=== PATIENT | male | born 1950 | race Caucasian/White ===

== ENCOUNTER 2023-06-03 14:32 | Emergency (ER) | payer OTHER, SELFPAY ==
[2023-06-03 14:42] VITALS: BP 110/73
[2023-06-03 15:05] LABS: % Eosinophils 3.1 % (0-6); % Immature Granulocytes 0.2 % (0-0.5); % Monocytes 9.8 % (1.7-9.3); % Neutrophils 58.9 % (42.2-75.2); Absolute Eosinophils 0.1 10^3/uL (0-0.7); Absolute Lymphocytes 1.1 10^3/uL (1.2-3.4); Absolute Monocytes 0.4 10^3/uL (0.1-0.6); Absolute Neutrophils 2.5 10^3/uL (1.4-6.5); Hematocrit 41.1 % (39.0-52.0); Hemoglobin 14.2 g/dL (13.0-18.0); Mean Corp Hgb Conc. 34.5 g/dL (33.0-37.0); Mean Corpuscular Volume 86.7 fL (80.0-94.0); Mean Platelet Volume 10.4 fL (7.4-10.4); Nucleated Red Blood Cells % 0 % (-); Platelet Count 189 10^3/uL (130-400); Red Blood Cell Count 4.74 10^6/uL (4.70-6.10); Red Cell Dist. Width 13.3 % (11.5-14.5); White Blood Cell Count 4.2 10^3/uL (4.8-10.8)
[2023-06-03 15:24] LABS: ALT (SGPT) 26 U/L (0-50); AST (SGOT) 26 U/L (17-59); Albumin 4.4 g/dl (3.5-5.0); Alkaline Phosphatase 69 U/L (38-126); Blood Urea Nitrogen 20 mg/dl (9-20); Carbon Dioxide 26 mmol/L (22-30); Chloride 104 mmol/L (98-107); Glucose 114 mg/dl (70-99); Potassium 4.1 mmol/L (3.5-5.1); Sodium 135 mmol/L (135-145); Total Bilirubin 1.1 mg/dl (0.2-1.3); Total Protein 7.1 g/dl (6.3-8.2); eGFR > 60.00
[2023-06-03 15:35] LABS: Troponin I < 0.012 ng/ml
[2023-06-03 17:34] VITALS: BP 167/88
[2023-06-03 18:14] VITALS: BP 166/91
--- NOTE | 2023-06-03 22:42 | ED.GENMED ---
History of Present Illness
General
Chief Complaint: Chest Pain
Source: patient
Exam Limitations: none
Time Seen by Provider: 06/03/23 17:18
Nursing documentation reviewed up to this point in time: agreed with
Travel History
Have you had any contact with someone who has COVID-19?: No
Do you have any symptoms of coronavirus? Fever > 100 degrees, chills, cough, shortness of breath, sore throat, loss of taste or smell, muscle aches, or headache?: No
History of Present Illness
History of Present Illness:
Patient to ED stating that he just does not feel like himself. Symptmos started 'few weeks ago'. States he feels tired - no energy. Report feeling like his balance is off. Denies fever/chills,n/v/d. No recent illness. Eating drinking and
sleeping as normal. Brought self to ED for eval.
Past History
Past History
ED Past Medical History: Other (Colon mass, agent orange exposure)
ED Past Surgical History: Other (colon perforation s/p colonoscopy)
Social History
Tobacco: Non-smoker
Alcohol: None
Drug: None
Living: with family
Employment: Retired
Phy Exam
General Physical Exam
General Presentation: well appearing and no apparent distress
General age: appears stated age
General Skin: warm and dry
General Habitus: normal
General Mental: alert
Cardiovascular Exam
Cardiovascular Exam: regular rate/rhythm and no edema
Pulmonary Exam
Pulmonary Exam: lungs clear and no respiratory distress
Gastrointestinal Exam
Gastrointestinal Exam: normal bowel sounds, non tender, soft, no organomegaly, non distended and no cva tenderness
Neurological Exam
Neurological Exam: alert, oriented x3, CN II-XII intact, no motor deficits, no sensory deficits, speech normal and normal gait
Musculoskeletal Exam
Musculoskeletal Exam: full ROM
Skin Exam
Skin Exam: normal color, warm/dry and no rash
Psychiatric Exam
Psychiatric Exam: normal mood/affect
Scores
Heart Score for Chest Pain Patients
STEMI patient?: Not applicable
Course
Orders/Labs/Results
Orders:
Orders
06/03/23 14:33
EKG [Electrocardiogram (*1)] Urgent
Reason for Study: Chest Pain
EKG- Treatment ONCE
06/03/23 14:55
Complete Blood Count/With Diff Urgent
Comprehensive Metabolic Panel Urgent
Troponin I Urgent
06/03/23 17:59
CT Head W/o Iv Contrast Urgent
Comment:
Reason For Exam: weakness, balance issues
Abnormal Lab Results
06/03/23
14:55
WBC 4.2 L 10^3/uL
(4.8-10.8)
Absolute Lymphs (auto) 1.1 L 10^3/uL
(1.2-3.4)
Monocytes % 9.8 H %
(1.7-9.3)
Glucose 114 H mg/dl
(70-99)
06/03/23 14:55
06/03/23 14:55
Vital Signs
Initial and Last Documented VS:
Initial Vital Signs
Temp Pulse Resp BP Pulse Ox
98.2 F 78 18 110/73 97
06/03/23 14:42 06/03/23 14:42 06/03/23 14:42 06/03/23 14:42 06/03/23 14:42
Last Documented Vital Signs
Temp Pulse Resp BP Pulse Ox
98.2 F 65 18 166/91 97
06/03/23 14:42 06/03/23 18:15 06/03/23 18:15 06/03/23 18:14 06/03/23 18:15
*Radiology
Radiology exam reviewed: radiology read reviewed
*Pulse Oximetry
Patient hypoxic: no
*Critical Care Note
Total Time (30-74mins, 75-104mins- exclusive of procedures): Not Applicable
Update Note
Update Note:
Labs, CT results reviewed [facility] patient. No concerning findings on exam. He is discharged home and will follow up with PCP. given instructioins on s/s to return to ED and he is agreeable to plan.
ED Attending Note
-
Portions of this chart may have been created with voice recognition software.� Occasional wrong word or��sound alike� substitutions may have occurred due to the inherent limitations of voice recognition software.
Discharge Plan
Departure
Patient Disposition: Home (Routine Discharge)
Date of Disposition: 06/03/23
Time of Disposition: 19:34
Patient with high blood pressure during this ER visit?: No
Condition: Good
Covid-19: Not Applicable
Discharge Problem:
Weakness
Instructions: Weakness ED
Prescriptions:
No Action
cholecalciferol (vitamin D3) [Vitamin D3] 25 mcg (1,000 unit) Tablet
25 mcg PO DAILY
ibuprofen 200 mg tablet
400 - 600 mg PO Q6HPRN PRN (Reason: moderate pain) Qty: 1 0RF
tramadol 50 mg tablet
50 mg PO Q6HPRN PRN (Reason: severe pain/breakthrough pain) Qty: 7 0RF
acetaminophen [Tylenol Extra Strength] 500 mg tablet
1,000 mg PO Q6HPRN PRN (Reason: mild pain) Qty: 1 0RF
Referrals:
NONE,* [Family Provider] -
Activity Restrictions/Additional Instructions:
Follow up with your healthcare provider this week.
Interventions
Interventions:
*Risk Screen - Suicide Last Done: 06/03/23 14:42
*General Assessment Last Done: 06/03/23 19:54
*Neglect/Abuse Screening Last Done: 06/03/23 14:42
ED- Fall Risk Assessment Last Done: 06/03/23 19:54
*ED COVID-19 Vaccine History Last Done: 06/03/23 14:42
*Nursing Disposition Last Done: 06/03/23 19:54
ED- Cardiac Assessment Last Done: 06/03/23 18:16
Discharge Date and Time
Discharge Date/Time: 06/03/23 19:54
Print Language: UKRAINIAN
== END 2023-06-03 19:54 | disposition home or self-care (01) ==
LOC: EMR 14:32
PROVIDERS: Student in an Organized Health Care Education/Training Program; EMERGENCY PHYSICIAN Emergency Medicine
DX: R53.1 Weakness (principal)
CPT/HCPCS: 99284; 70450; 80053; 84484; 85025; 93005

== ENCOUNTER 2023-08-25 09:07 | Emergency (ER) | payer OTHER, SELFPAY ==
[2023-08-25 09:13] VITALS: BP 125/71
[2023-08-25 10:37] VITALS: BMI 31.4
--- NOTE | 2023-08-25 10:59 | ED.GENMED ---
History of Present Illness
General
Chief Complaint: Abdominal Symptoms
Source: patient
Exam Limitations: none
Time Seen by Provider: 08/25/23 10:28
Nursing documentation reviewed up to this point in time: agreed with
History of Present Illness
History of Present Illness:
72 y/o M with no known med problems, doesn't go to the doctor
but did have perf following colonoscopy last year and had a partial colectomy
woke up 2 am with cramps in abdomen diffusely and then had 4 total episodes of diffuse watery non bloody stool/diarrhea
and n/v x 1 and some persistent nausea as well
felt lightheaded during episodes but no sychope or cp
no fever
no h/o diverticulitis
on abx currently, doxy for suspected lyme after he found tick on him but stll taking the doxy, isn' sure how many days left he has
no h/o c diff
Past History
Past History
ED Past Medical History: Other (Colon mass, agent orange exposure)
ED Past Surgical History: Other (colon perforation s/p colonoscopy)
Social History
Tobacco: Non-smoker
Alcohol: None
Drug: None
Living: with family
Employment: Retired
Review of Systems
Review of Systems
Allergies reviewed?: Yes
All Other Systems: Not applicable
Phy Exam
Physical Exam
Physical Exam:
GENERAL: Alert , in no apparent distress, looks well, nontoxic
EYE: pupils equal and reactive
NECK: Supple
ENT: o/p clr, mmm.
CARDIAC: Regular rate and rhythm .
LUNGS: Clear breath sounds bilaterally, no acute respiratory distress, no wheezes/rales/rhonchi
ABDOMEN: Soft, without focal tenderness, no r/g, no cvat, normal bowel sounds,
NEUROLOGICAL: Alert and oriented, no focal neuro deficits
SKIN: Warm and dry, skin intact.
MUSCULOSKELETAL: No edema, well perfused. neg josé miguel's sign
PSYCH: Normal and appropriate interaction.
Course
Orders/Labs/Results
Orders:
Orders
08/25/23 10:52
0.9% Sodium Chloride 1000 ml [Nss] 1,000 ml IV BOLUS
Iohexol [Omnipaque] See Protocol PO NOW STA
Ondansetron Injectable [Zofran] 4 mg IV NOW STA
08/25/23 10:53
CT Abd/pel W Iv And Oral Contr Urgent
Comment:
Reason For Exam: diarrhea, vomiting, h/o partial colectomy
08/25/23 11:03
Complete Blood Count/With Diff Urgent
Comprehensive Metabolic Panel Urgent
Lipase Urgent
08/25/23 14:33
C DIFF [C difficile Antigen & Toxins] Urgent
RUBIN Source: Feces/Stool
Specimen Description:
Date Specimen was Collected: 08/25/23
Time Specimen was Collected: 14:12
Stool Culture Urgent
RUBIN Source: Feces/Stool
Specimen Description:
Date Specimen was Collected: 08/25/23
Time Specimen was Collected: 14:12
Abnormal Lab Results
08/25/23
11:03
Absolute Neuts (auto) 8.2 H 10^3/uL
(1.4-6.5)
Absolute Lymphs (auto) 0.4 L 10^3/uL
(1.2-3.4)
Neutrophils % 90.8 H %
(42.2-75.2)
Lymphocytes % 4.4 L %
(20.5-51.1)
BUN 32 H mg/dl
(9-20)
Glucose 144 H mg/dl
(70-99)
Total Bilirubin 1.6 H mg/dl
(0.2-1.3)
08/25/23 11:03
08/25/23 11:03
Vital Signs
Initial and Last Documented VS:
Initial Vital Signs
Temp Pulse Resp BP Pulse Ox
98.3 F 68 20 125/71 97
08/25/23 09:13 08/25/23 09:13 08/25/23 09:13 08/25/23 09:13 08/25/23 09:13
Last Documented Vital Signs
Temp Pulse Resp BP Pulse Ox
98.3 F 59 19 126/73 97
08/25/23 09:13 08/25/23 11:30 08/25/23 11:30 08/25/23 11:06 08/25/23 09:13
MDM/Problems Addressed
Differential Diagnosis Includes:
colitis, c diff, viral infection, abx induced diarrhea, gastroenteritis
MDM/Problems Addressed:
72 y/o M with no known chronic med problems, says he doesn't go to the doctor
no meds
did have a partial colectomy after a colon perf from a colonoscopy
here with crampy abd and diarrhea overnight, nausea, dry heaves
felt lightheaded at home but no longer
no bloody stool
on abx doxycycline that was started after tick bite 2 weeks ago
no known lyme
nontender on exam
stable vitals
stool studies pending
given partial colectomy, will prep with oral an div contrast
pt had 1 episode of diarrhea here
feels ok 1615 on reevaluation
ct shows mild colitis likely infectious vs. inflammatory
given IVF
wants to try to eat
going to await c diff prior to d/c but seems stable to d/c
*Critical Care Note
Total Time (30-74mins, 75-104mins- exclusive of procedures): Not Applicable
ED Attending Note
-
Portions of this chart may have been created with voice recognition software.� Occasional wrong word or��sound alike� substitutions may have occurred due to the inherent limitations of voice recognition software.
Discharge Plan
Departure
Patient Disposition: Home (Routine Discharge)
Date of Disposition: 08/25/23
Time of Disposition: 16:15
Patient with high blood pressure during this ER visit?: No
Condition: Fair
Covid-19: Not Applicable
Discharge Problem:
Colitis
Instructions: [place] Diet, Colitis (DC)
Prescriptions:
No Action
cholecalciferol (vitamin D3) [Vitamin D3] 25 mcg (1,000 unit) Tablet
25 mcg PO DAILY
ibuprofen 200 mg tablet
400 - 600 mg PO Q6HPRN PRN (Reason: moderate pain) Qty: 1 0RF
tramadol 50 mg tablet
50 mg PO Q6HPRN PRN (Reason: severe pain/breakthrough pain) Qty: 7 0RF
acetaminophen [Tylenol Extra Strength] 500 mg tablet
1,000 mg PO Q6HPRN PRN (Reason: mild pain) Qty: 1 0RF
Referrals:
UNKNOWN - PT DOES,NOT KNOW [Family Provider] -
Activity Restrictions/Additional Instructions:
YOUR CAT SCAN SHOWS SOME MILD INFLAMMATION OF YOUR COLON, LIKELY FROM A VIRUS
YOUR C DIFF TEST WAS NEGTIVE
WE STILL HAVE OTHER STOOL STUDIES PENDING JUST IN CASE, YOU WILL HEAR FROM US IN A FEW DAYS IF YOU NEED ANTIBIOTICS
TRY THE BRAT DIET, BANANAS, RICE, APPLESAUCE, BLAND FOODS
STAY HYDRATED
IF YOU FEEL THAT THE DIARHEA IS SEVERE, YOU CAN TRY A DOSE OF IMODIUM (1 TAB) BUT THIS CAN MAKE YOU CONSTIATPED SO WE PREFER YOU DON'T
IF THE DIARRHEA BECOMES BLOODY RETURN IMMEDIATELY
IF YOU HAVE SEVERE PAIN/WORSENING DIARRHEA OR NEW FEVER, PLEASE RETURN TO THE ER
OTHERWISE SEE YOUR DOCTOR THIS WEEK.
YOU CAN USE TYLENOL FOR PAIN NEEDED
Interventions
Interventions:
*Risk Screen - Suicide Last Done: 08/25/23 09:13
*General Assessment Last Done: 08/25/23 09:13
*Neglect/Abuse Screening Last Done: 08/25/23 09:13
ED- Fall Risk Assessment Last Done: 08/25/23 10:47
*ED COVID-19 Vaccine History Last Done: 08/25/23 10:38
DG-Quxjqg-Gtnhfyiejr Assessment Last Done: 08/25/23 10:46
Discharge Date and Time
Print Language: DANISH
[2023-08-25] MEDS: OMNIPAQUE 50 ML PO (11:05)
[2023-08-25] MEDS: ZOFRAN 4 MG IV (11:05)
[2023-08-25 11:06] VITALS: BP 126/73
[2023-08-25] MEDS: NSS 1000 IV (11:06)
[2023-08-25 11:10] LABS: % Basophils 0.2 % (0-2); % Eosinophils 0.3 % (0-6); % Immature Granulocytes 0.2 % (0-0.5); % Lymphocytes 4.4 % (20.5-51.1); % Monocytes 4.1 % (1.7-9.3); % Neutrophils 90.8 % (42.2-75.2); Absolute Lymphocytes 0.4 10^3/uL (1.2-3.4); Absolute Monocytes 0.4 10^3/uL (0.1-0.6); Absolute Neutrophils 8.2 10^3/uL (1.4-6.5); Hematocrit 42.7 % (39.0-52.0); Hemoglobin 14.4 g/dL (13.0-18.0); Mean Corp Hgb Conc. 33.7 g/dL (33.0-37.0); Mean Corpuscular Hgb 29.6 pg (27.0-31.0); Mean Corpuscular Volume 87.9 fL (80.0-94.0); Mean Platelet Volume 10.4 fL (7.4-10.4); Nucleated Red Blood Cells % 0 % (-); Platelet Count 194 10^3/uL (130-400); Red Blood Cell Count 4.86 10^6/uL (4.70-6.10); Red Cell Dist. Width 13.7 % (11.5-14.5)
[2023-08-25 11:28] LABS: ALT (SGPT) 28 U/L (0-50); AST (SGOT) 25 U/L (17-59); Albumin 4.7 g/dl (3.5-5.0); Alkaline Phosphatase 69 U/L (38-126); Blood Urea Nitrogen 32 mg/dl (9-20); Calcium 9.3 mg/dl (8.4-10.2); Carbon Dioxide 24 mmol/L (22-30); Chloride 105 mmol/L (98-107); Estimated Creatinine Clearance 97 ml/min; Glucose 144 mg/dl (70-99); Lipase 53 U/L (23-300); Potassium 4.3 mmol/L (3.5-5.1); Sodium 139 mmol/L (135-145); Total Bilirubin 1.6 mg/dl (0.2-1.3); Total Protein 7.5 g/dl (6.3-8.2); eGFR > 60.00
[2023-08-25 12:00] VITALS: BP 128/77
[2023-08-25 13:00] VITALS: BP 147/81
[2023-08-25 15:00] VITALS: BP 158/85
[2023-08-25 16:00] VITALS: BP 138/80
== END 2023-08-25 16:45 | disposition home or self-care (01) ==
LOC: EMR 09:07
PROVIDERS: Physician Assistant; EMERGENCY PHYSICIAN Emergency Medicine
DX: K52.9 Noninfective gastroenteritis and colitis, unspecified (principal); R11.2 Nausea with vomiting, unspecified; R42 Dizziness and giddiness; Z77.29 Contact with and (suspected) exposure to other hazardous substances; Z98.0 Intestinal bypass and anastomosis status; Z88.3 Allergy status to other anti-infective agents; Z88.0 Allergy status to penicillin
CPT/HCPCS: 99285; 96361; 96374; 74177; 80053; 83690; 85025; 87045; 87046; 87324; 87427; 87449; Q9967

== ENCOUNTER → 2024-02-03 13:55 | Day surgery (SDC) | payer OTHER, SELFPAY | LOC: GI 13:55 | PROVIDERS: ATTENDING PHYSICIAN Internal Medicine Gastroenterology | DX: Z12.11 Encounter for screening for malignant neoplasm of colon (principal); K57.30 Diverticulosis of large intestine without perforation or abscess without bleeding; K64.8 Other hemorrhoids; R19.4 Change in bowel habit; Z86.0100 Personal history of colon polyps, unspecified; Z98.0 Intestinal bypass and anastomosis status | CPT/HCPCS: 45380; 88305 ==